=== PATIENT | male | born 1990 | race Caucasian/White ===

== ENCOUNTER 2023-11-14 12:38 | Inpatient (IN) ==
--- NOTE | 2023-11-14 13:18 | XRay Report ---
XR chest 1V not portable HISTORY: 33 years-old Male Chest pain, nonspecific acute chest pain COMPARISON: 04/12/2022 TECHNIQUE: AP view of the chest FINDINGS: Cardiomediastinal and hilar silhouettes are within normal limits. No pneumothorax, pleural effusion o r airspace consolidation. The bones appear grossly intact. IMPRESSION: No acute process of the chest. ACT 112: Negative or not required by law. The above report was generated using voice recognition software. It may contain grammatical, syntax o r spelling errors. Electronically signed by: [place] Ferrara M.D. 11/14/2023 1:16 PM
[2023-11-14] MEDS ORDERED: ALBUT/IPRATROP 3MG/0.5MG NEB 3 ML VIAL NEB STA (14:13)
[2023-11-14] MEDS ORDERED: cefTRIAXone SODIUM 2,000 MG/50 ML BAG IV STA (14:13)
[2023-11-14] MEDS ORDERED: AZITHROMYCIN 250 MG TAB PO ONE (14:13)
[2023-11-14] MEDS ORDERED: SODIUM CHLORIDE 0.9% 1,000 ML IV ONE (14:13)
[2023-11-14 14:18] LABS: Basophils # (auto) 0.01 K/uL (0.00-0.20); Basophils % (auto) 0.2 %; Eosinophils # (auto) 0.01 K/uL (0.00-0.50); Eosinophils % (auto) 0.2 %; Hematocrit (blood only) 41.1 % (42.0-52.0); Hemoglobin 14.5 g/dl (14.0-18.0); Lymphocytes % (auto) 28.3 %; Mean Corpuscular Hemoglobin 31.7 pg (25.0-34.0); Mean Corpuscular Hgb Conc 35.3 g/dL (32.0-36.0); Mean Corpuscular Volume 89.7 fL (80.0-100.0); Monocytes # (auto) 0.74 K/uL (0.11-0.59); Monocytes % (auto) 17.5 %; Neutrophils # (auto) 2.28 K/uL (1.40-6.50); Neutrophils % (auto) 53.8 %; Platelet Count 138 K/uL (130-400); RDW Coefficient of Variation 12.8 % (11.5-14.5); RDW Standard Deviation 42.2 fL (36.4-46.3); Red Blood Count 4.58 M/uL (4.70-6.10); White Blood Count 4.24 K/ul (4.8-10.8)
--- NOTE | 2023-11-14 14:18 | Emergency Department Note ---
Impression & Plan Weakness, SOB (shortness of breath), Hemoptysis, Influenza B, Failure of outpatient treatment ED Provider Note NAME: ROB CAN AGE: 33 SEX: M : 1990 ARRIVES VIA: Walk-In INFORMANT: [Patient] ED PROVIDER(S): [Wiley Headley MD] CHIEF COMPLAINT: Shortness of breath HISTORY OF PRESENT ILLNESS: The patient is a 33-year-old male with Crohn's disease. He is on immunosuppressive therapy. The patient states that he was at a trade show on November 04. On the , 4 days ago, he began feeling ill. He began with a cough and sore throat and chest congestion. He went to urgent care and was diagnosed with influenza B. The patient really was not improving so he went to his PCP yesterday. They diagnosed him with bronchitis. He was placed on an inhaler, Tessalon Perles and prednisone. The patient states that he still feels short of breath, he still coughing quite a bit. He began coughing to the point of vomiting and actually brought up some mucousy blood with his vomiting. The patient's throat is still sore. He denies any diarrhea or blood in his stool. He has lost weight because of this illness. The patient is concerned because he has not improved in the last week. PMHx/PSHx/Social Hx: See Below PHYSICAL EXAM: GENERAL: Patient is in no acute distress. HEENT: No acute trauma, normocephalic atraumatic, mucous membranes moist, no nasal congestion. No throat erythema or exudate. NECK: No stridor, no adenopathy, no meningismus, trachea is midline. LUNGS: Clear to auscultation bilaterally, no wheeze, no rhonchi, breath sounds equal. Breath sounds are diminished bilaterally, moist cough noted. HEART: Without murmurs gallops or rubs, regular rate and rhythm. ABDOMEN: Soft, nontender, no peritonitis. EXTREMITIES: No cyanosis, full range of motion of all the joints without pain or difficulty. NEUROLOGIC: Oriented x 3, no acute motor or sensory deficits, no focal weakness. SKIN: No jaundice, no diaphoresis. DIFFERENTIAL DIAGNOSIS: Influenza, COVID-19, bronchitis or pneumonia, PE, immunocompromise, coagulopathy or anemia, failed outpatient management, among others. EMERGENCY DEPARTMENT PROCEDURES: MEDICAL DECISION MAKING: There is no leukocytosis, in fact, the white count is slightly low consistent with his viral illness. There was a normal hemoglobin and platelet count. D- dimer was not elevated making PE less likely. No renal failure or significant electrolyte abnormality. There was a slight elevation to the bilirubin however, the remaining liver enzymes were unremarkable. No evidence for pancreatitis. ECG shows a normal sinus rhythm, no ST elevation. Cardiac enzyme testing x 1 is not consistent with acute cardiac injury. COVID test returned negative. Chest x-ray did not show pneumonia or CHF. Chest CT does not show pneumonia or PE. Patient persisted with coughing spells here in the ED. He felt weak and exhausted and short of breath. Patient received IV morphine for his chest and throat pain. He was given IV saline, 1 L. He received Hycodan cough syrup orally. He was given IV ceftriaxone and oral Zithromax as antibiotic coverage. He was given a DuoNeb. The patient is not feeling improved. He does not think he can go home in this condition. This is his third visit to a practitioner for this illness. He is somewhat immunocompromised because of his Crohn's disease and meds to treat. In short, the patient appears to have influenza B, this has led to a bronchitis and shortness of breath, fatigue and weakness. He will be hospitalized for hydration, symptom control and antibiotic therapy. I spoke with the patient and case management, the on-call hospitalist was consulted. Prior/Outside records/notes reviewed: Laboratory studies and results from his outpatient visits-notably positive for influenza B. ECG per my interpretation: Indication was shortness of breath. The ECG shows a normal sinus rhythm with a rate of 60. There is no ST elevation, no PVCs. QTc is 398. Continuous Cardiac Monitoring per my interpretation: An order was placed for continuous cardiac monitoring. The monitor shows a rate of 63 with normal sinus rhythm. Imaging/x-ray results per my interpretation: Chest x-ray does not show mediastinal widening, pneumonia or pneumothorax. Chronic Medical/Social conditions affecting care: Crohn's disease with immunosuppressive therapy. Care/Management discussed with: Case management, the on-call hospitalist. Level of care consideration(s): After review of the information above and other included data: --I believe the patient requires escalation of care to admission DISPOSITION: Admission Past Med/Surg History Medical History History of asthma DX A CHILD ONLY Gilbert syndrome Crohn's disease (~2016) [facility] Surgical History Family history of reaction to anesthesia MOTHER-NAUSEA History of colonoscopy S/P wrist surgery RT Family History Father Diabetes Grandfather (Maternal) Diabetes Grandfather (Paternal) Heart disease Denies family history of Colon cancer Ovarian cancer Prostate cancer Myocardial infarction Breast cancer Colorectal cancer Social History Smoking Status: Never smoker Second Hand Exposure: No; Do You Dip or Chew Tobacco: No; Hx Alcohol Use: No Hx Substance Use: No Preferred Language: Maltese Communication Ability: Effective Visual Impairment: No Limitations Hearing Ability: Normal Installer Metal Flooring Required: No Beliefs That Will Affect Care: None marital status: Single Current Living Situation: Parent Current Living Situation Comment: Lives with mother current occupational status: employed 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 How many Children do You have: 0 Feels Safe at Home: Yes Childhood Exposure to Second-Hand Smoke: No caffeine: Yes (coffee and soda ) Dental Care, Regularly: No Physical Activity Frequency: Does not Exercise Seatbelt Use: always Sunscreen Use: Yes Assistive Devices: None Allergies Allergies Allergy/AdvReac Type Severity Reaction Status Date / Time No Known Allergies Allergy Unknown Verified 11/14/23 14:27 Home Meds Home Medications Medication Instructions Recorded Confirmed acetaminophen 500 mg tablet 500 mg PO Q6H PRN pain/fever 11/14/23 11/14/23 albuterol sulfate 90 mcg/actuation 2 puff inhalation Q4H PRN 11/14/23 11/14/23 aerosol inhaler WHEEZING/sob benzonatate 100 mg capsule 100 mg PO TID PRN Cough 11/14/23 11/14/23 [id number]-acetaminophen 7.5 30 ml PO Q6H PRN Cold Symptoms 11/14/23 11/14/23 mg-60 [id number] oral liqd ibuprofen 400 mg tablet 400 mg PO Q6H PRN pain/fever 11/14/23 11/14/23 prednisone 10 mg tablet 0 mg PO DAILY 11/14/23 11/14/23 Results & Data (ED) Vital Signs Vital Signs - 24 hr 11/14/23 12:48 11/14/23 14:02 11/14/23 14:19 Temperature 37.2 C Temperature Source Temporal Artery Scan Pulse Rate 63 Pulse Rate from SpO2 Sensor Pulse Rhythm Regular Pulse Strength Normal Respiratory Rate 18 Respiratory Effort / Characteristics Non-Labored Respiratory Depth Normal Respiratory Pattern Regular Blood Pressure 146/76 H Blood Pressure Mean 99 Blood Pressure Position Sitting Pulse Oximetry 98 98 Oxygen Delivery Method Room Air Room Air Room Air Sepsis Recent Fever Within 48 Hours Yes Sepsis New/Unexplained Change in Mental Status No Sepsis Action Taken by Nursing No Action Required 11/14/23 14:28 11/14/23 14:30 11/14/23 14:30 Temperature Temperature Source Pulse Rate 69 64 Pulse Rate from SpO2 Sensor Pulse Rhythm Pulse Strength Respiratory Rate 24 17 Respiratory Effort / Characteristics Respiratory Depth Respiratory Pattern Blood Pressure 137/83 Blood Pressure Mean 93 Blood Pressure Position Pulse Oximetry Oxygen Delivery Method Sepsis Recent Fever Within 48 Hours Sepsis New/Unexplained Change in Mental Status Sepsis Action Taken by Nursing 11/14/23 14:40 11/14/23 15:22 11/14/23 15:30 Temperature Temperature Source Pulse Rate 69 81 Pulse Rate from SpO2 Sensor 106 H 84 Pulse Rhythm Pulse Strength Respiratory Rate 19 24 Respiratory Effort / Characteristics Respiratory Depth Respiratory Pattern Blood Pressure Blood Pressure Mean Blood Pressure Position Pulse Oximetry 97 99 Oxygen Delivery Method Sepsis Recent Fever Within 48 Hours Sepsis New/Unexplained Change in Mental Status Sepsis Action Taken by Nursing 11/14/23 15:30 11/14/23 15:40 11/14/23 15:50 Temperature Temperature Source Pulse Rate 103 H 84 Pulse Rate from SpO2 Sensor 97 H 86 Pulse Rhythm Pulse Strength Respiratory Rate 22 15 Respiratory Effort / Characteristics Respiratory Depth Respiratory Pattern Blood Pressure 163/75 H Blood Pressure Mean 107 Blood Pressure Position Pulse Oximetry 97 99 Oxygen Delivery Method Sepsis Recent Fever Within 48 Hours Sepsis New/Unexplained Change in Mental Status Sepsis Action Taken by Nursing 11/14/23 16:00 11/14/23 16:00 11/14/23 16:01 Temperature Temperature Source Pulse Rate 70 73 Pulse Rate from SpO2 Sensor 74 Pulse Rhythm Pulse Strength Respiratory Rate 23 Respiratory Effort / Characteristics Respiratory Depth Respiratory Pattern Blood Pressure 163/93 H Blood Pressure Mean 103 Blood Pressure Position Pulse Oximetry 97 Oxygen Delivery Method Sepsis Recent Fever Within 48 Hours Sepsis New/Unexplained Change in Mental Status Sepsis Action Taken by Nursing 11/14/23 16:10 11/14/23 16:20 11/14/23 16:30 Temperature Temperature Source Pulse Rate 89 81 Pulse Rate from SpO2 Sensor 76 83 Pulse Rhythm Pulse Strength Respiratory Rate 21 17 Respiratory Effort / Characteristics Respiratory Depth Respiratory Pattern Blood Pressure 153/100 H Blood Pressure Mean 117 Blood Pressure Position Pulse Oximetry 98 98 Oxygen Delivery Method Sepsis Recent Fever Within 48 Hours Sepsis New/Unexplained Change in Mental Status Sepsis Action Taken by Nursing 11/14/23 16:30 11/14/23 16:40 11/14/23 16:50 Temperature Temperature Source Pulse Rate 74 88 91 H Pulse Rate from SpO2 Sensor 75 87 81 Pulse Rhythm Pulse Strength Respiratory Rate 20 15 23 Respiratory Effort / Characteristics Respiratory Depth Respiratory Pattern Blood Pressure Blood Pressure Mean Blood Pressure Position Pulse Oximetry 97 97 95 Oxygen Delivery Method Sepsis Recent Fever Within 48 Hours Sepsis New/Unexplained Change in Mental Status Sepsis Action Taken by Nursing 11/14/23 17:00 11/14/23 17:00 11/14/23 17:30 Temperature Temperature Source Pulse Rate 79 98 H Pulse Rate from SpO2 Sensor 81 90 Pulse Rhythm Pulse Strength Respiratory Rate 24 21 Respiratory Effort / Characteristics Respiratory Depth Respiratory Pattern Blood Pressure 166/94 H 166/94 H 158/74 H Blood Pressure Mean 122 118 102 Blood Pressure Position Pulse Oximetry 98 98 Oxygen Delivery Method Sepsis Recent Fever Within 48 Hours Sepsis New/Unexplained Change in Mental Status Sepsis Action Taken by Nursing 11/14/23 18:00 11/14/23 18:30 11/14/23 19:00 Temperature Temperature Source Pulse Rate 81 87 79 Pulse Rate from SpO2 Sensor 74 90 82 Pulse Rhythm Pulse Strength Respiratory Rate 20 23 23 Respiratory Effort / Characteristics Respiratory Depth Respiratory Pattern Blood Pressure 157/70 H 152/83 H 163/91 H Blood Pressure Mean 99 106 115 Blood Pressure Position Pulse Oximetry 97 97 94 Oxygen Delivery Method Sepsis Recent Fever Within 48 Hours Sepsis New/Unexplained Change in Mental Status Sepsis Action Taken by Nursing 11/14/23 19:58 11/14/23 20:00 11/14/23 20:30 Temperature Temperature Source Pulse Rate 78 80 81 Pulse Rate from SpO2 Sensor 81 80 Pulse Rhythm Pulse Strength Respiratory Rate 21 22 Respiratory Effort / Characteristics Respiratory Depth Respiratory Pattern Blood Pressure 142/87 H 163/86 H Blood Pressure Mean 105 111 Blood Pressure Position Pulse Oximetry 96 94 Oxygen Delivery Method Sepsis Recent Fever Within 48 Hours Sepsis New/Unexplained Change in Mental Status Sepsis Action Taken by Group Home Medications Current Medication List: was personally reviewed by me Laboratory Data Attestation: I reviewed the patient's lab results. 11/14/23 13:40 11/14/23 13:40 Lab Results 11/14/23 Range/Units 13:40 WBC 4.24 L (4.8-10.8) K/ul RBC 4.58 L (4.70-6.10) M/uL Hgb 14.5 (14.0-18.0) g/dl Hct 41.1 L (42.0-52.0) % MCV 89.7 (80.0-100.0) fL MCH 31.7 (25.0-34.0) pg MCHC 35.3 (32.0-36.0) g/dL RDW Std Deviation 42.2 (36.4-46.3) fL RDW Coeff of Gege 12.8 (11.5-14.5) % Plt Count 138 (130-400) K/uL MPV 11.0 (9.4-12.4) fL Immature Gran % (Auto) 0.0 % Neut % (Auto) 53.8 % Lymph % (Auto) 28.3 % [place] % (Auto) 17.5 % Eos % (Auto) 0.2 % Baso % (Auto) 0.2 % Neut # (Auto) 2.28 (1.40-6.50) K/uL Lymph # (Auto) 1.20 (1.20-3.40) K/uL [place] # (Auto) 0.74 H (0.11-0.59) K/uL Eos # (Auto) 0.01 (0.00-0.50) K/uL Baso # (Auto) 0.01 (0.00-0.20) K/uL Immature Gran # (Auto) 0.00 L (0.01-0.20) K/uL D-Dimer 420 (0-500) ug/L FEU Sodium 140 (136-145) mmol/L Potassium 4.0 (3.5-5.1) mmol/L Chloride 103 (98-107) mmol/L Carbon Dioxide 32 (21-32) mmol/L Anion Gap 5 (3-11) BUN 9 (6-23) mg/dl Creatinine 0.81 (0.6-1.4) mg/dl Est Cr Clr Drug Dosing 167.3 ml/min Est GFR ( Amer) 137.3 ml/min Est GFR (Non-Af Amer) 118.4 ml/min BUN/Creatinine Ratio 11.1 (10-20) Glucose 89 (70-99(Fasting)) mg/dl Calcium 9.1 (8.6-10.3) mg/dl Total Bilirubin 1.8 H (0.2-1.0) mg/dl AST 20 (13-39) U/L ALT 29 (7-52) U/L Alkaline Phosphatase 47 (34-104) U/L Troponin I High Sens 2.6 (0-20) pg/ml Total Protein 7.4 (6.0-8.3) gm/dl Albumin 4.6 (3.4-5.0) gm/dl Globulin 2.8 (2.5-4.0) gm/dl Albumin/Globulin Ratio 1.6 (0.9-2) Lipase 37 (11-82) U/L SARS-CoV-2 (PCR) NEGATIVE (Negative) Administered Medications Discontinued Medications Albuterol (Albut/Ipratrop 3mg/0.5mg Neb 3 Ml Vial) 3 ml NEB NOW STA; Protocol Stop: 11/14/23 14:14 Last Admin: 11/14/23 14:31 Dose: 3 ml Documented By: HIRO Albuterol (Albut/Ipratrop 3mg/0.5mg Neb 3 Ml Vial) Confirm Administered Dose 3 ml .ROUTE .STK-MED ONE Stop: 11/14/23 18:46 Last Admin: 11/14/23 18:49 Dose: Not Given Documented By: ALDO Azithromycin (Azithromycin 250 Mg Tab) 500 mg PO NOW ONE Stop: 11/14/23 14:14 Last Admin: 11/14/23 14:31 Dose: 500 mg Documented By: HIRO Benzonatate (Benzonatate 100 Mg Capsule) Confirm Administered Dose 100 mg .ROUTE .STK-MED ONE Stop: 11/14/23 18:49 Last Admin: 11/14/23 18:49 Dose: 100 mg Documented By: ALDO Hydrocodone Bit/Homatropine Methylb (Hydrocodone/Homatropine Syrup 5mg/1.5mg 5ml Udp) 5 ml PO NOW STA Stop: 11/14/23 15:25 Last Admin: 11/14/23 15:41 Dose: 5 ml Documented By: HIRO Sodium Chloride (Nss) 1,000 mls @ 999 mls/hr IV .Q1H1M ONE Stop: 11/14/23 15:13 Last Infusion: 11/14/23 15:07 Dose: Infused Documented By: Admin: 11/14/23 14:31 Dose: 999 mls/hr Documented By: HIRO Ceftriaxone Sodium (Rocephin) 2,000 mg in 50 mls @ 100 mls/hr IV NOW STA Stop: 11/14/23 14:42 Last Infusion: 11/14/23 15:07 Dose: Infused Documented By: Admin: 11/14/23 14:31 Dose: 100 mls/hr Documented By: HIRO Ioversol (Optiray 320 125ml) 118 ml IV ONCE ONE Stop: 11/14/23 14:53 Last Admin: 11/14/23 14:53 Dose: 118 ml Documented By: CORA Methylprednisolone (Methylprednisolone 40 Mg/Ml Vial) 40 mg IV NOW STA Stop: 11/14/23 18:11 Last Admin: 11/14/23 18:44 Dose: 40 mg Documented By: HIRO Morphine Sulfate (Morphine Sulfate 4 Mg/Ml 1 Ml Carp\Vial) 4 mg IV NOW STA Stop: 11/14/23 16:42 Last Admin: 11/14/23 16:51 Dose: 4 mg Documented By: HIRO Imaging Data Radiologist's Impression: Chest X-Ray 11/14/23 12:51 XR chest 1V not portable HISTORY: 33 years-old Male Chest pain, nonspecific acute chest pain COMPARISON: 04/12/2022 TECHNIQUE: AP view of the chest FINDINGS: Cardiomediastinal and hilar silhouettes are within normal limits. No pneumothorax, pleural effusion or airspace consolidation. The bones appear grossly intact. IMPRESSION: No acute process of the chest. ACT 112: Negative or not required by law. The above report was generated using voice recognition software. It may contain grammatical, syntax or spelling errors. Electronically signed by: [place] Ferr[place] M.D. 11/14/2023 1:16 PM Chest CTA 11/14/23 14:13 CHEST CTA for PULMONARY ARTERIES CT DOSE: 823.68 mGy.cm HISTORY: Atypical chest pain. Cough. TECHNIQUE: Multiaxial CT images of the chest were performed following the intravenous administration of contrast to evaluate the pulmonary arteries. 3D/Maximal intensity projection images were also obtained. Sagittal and coronal reformations were also reviewed. A dose lowering technique was utilized adhering to the principles of ALARA. COMPARISON STUDY: Chest CTA 04/12/2022. FINDINGS: Hepatic steatosis is again noted. The visualized liver and spleen remain enlarged. Normal adrenal glands. The thyroid gland enhances normally. No pleural or pericardial effusions. The heart remains borderline enlarged. Normal esophagus. No mediastinal or hilar lymphadenopathy. Normal caliber thoracic aorta with no evidence for dissection. No filling defects seen within the pulmonary arteries to suggest a pulmonary embolus. No fractures within the visualized osseous structures. No pneumothorax. The central airways are patent. No focal lung consolidations to suggest pneumonia. No evidence for pulmonary edema. IMPRESSION: 1. No evidence for pulmonary embolus. 2. Borderline cardiomegaly, unchanged. 3. Hepatic steatosis with hepatosplenomegaly. This is also similar to the prior study. 4. No focal lung consolidations to suggest pneumonia. ACT 112: Negative or not required by law. Electronically signed by: Casey Nails M.D. 11/14/2023 3:29 PM Discharge Plan Visit Data Chief Complaint: Shortness of Breath/Dyspnea Stated Complaint: SOB,VOMITING BLOOD, CHEST PRESSURE ED Provider: Wiley Headley Discharge Problem: Weakness, SOB (shortness of breath), Hemoptysis, Influenza B, Failure of outpatient treatment Patient Disposition: Admitted As Inpatient Condition: Fair Forms Stand Alone Forms: [facility] Prescriptions Prescriptions: No Action prednisone 10 mg tablet 0 mg PO DAILY Rx Instructions: 50mg daily x2 days, 40mg daily x2 days, 30mg daily x2 days, 20mg daily x2 days, 10mg daily x2 days. Start Date 11/13/23 - End Date 11/23/23 NyQuil 7.5-60-30-1,000 mg/30 mL Liquid 30 ml PO Q6H PRN (Reason: Cold Symptoms) acetaminophen [Tylenol Ex Str Rapid Release] 500 mg Tablet 500 mg PO Q6H PRN (Reason: pain/fever) benzonatate 100 mg capsule 100 mg PO TID PRN (Reason: Cough) ibuprofen [Motrin] 400 mg Tablet 400 mg PO Q6H PRN (Reason: pain/fever) albuterol sulfate 90 mcg/actuation HFA aerosol inhaler 2 puff INHALATION Q4H PRN (Reason: WHEEZING/sob) Referrals Referrals: PCP,NO [Physician] -
[2023-11-14 14:20] LABS: Albumin Globulin Ratio 1.6 (0.9-2); Albumin Level 4.6 gm/dl (3.4-5.0); BUN Creatinine Ratio 11.1 (10-20); Bilirubin,Total 1.8 mg/dl (0.2-1.0); Calcium 9.1 mg/dl (8.6-10.3); Creatinine Clr Calc Pharmacy 167.3 ml/min; Est GFR (African American) 137.3 ml/min; Est GFR (Non-African American) 118.4 ml/min; Globulin 2.8 gm/dl (2.5-4.0); Total Protein 7.4 gm/dl (6.0-8.3)
[2023-11-14 14:26] LABS: Troponin I High Sensitivity 2.6 pg/ml (0-20)
[2023-11-14] MEDS ORDERED: OPTIRAY 320 125ml IV ONE (14:52)
[2023-11-14 15:03] LABS: D Dimer 420 ug/L FEU (0-500)
[2023-11-14] MEDS ORDERED: HYDROcodone/HOMATROPINE SYRUP 5MG/1.5MG 5ML UDP PO STA (15:24)
--- NOTE | 2023-11-14 15:31 | CT Scan Report ---
CHEST CTA for PULMONARY ARTERIES CT DOSE: 823.68 mGy.cm HISTORY: Atypical chest pain. Cough. TECHNIQUE: Multiaxial CT images of the chest were performed following the intravenous administration of contrast to evaluate the pulmonary arteries. 3D/Maximal intensity projection images were also obta ined. Sagittal and coronal reformations were also reviewed. A dose lowering technique was utilized a dhering to the principles of ALARA. COMPARISON STUDY: Chest CTA 04/12/2022. FINDINGS: Hepatic steatosis is again noted. The visualized liver and spleen remain enlarged. Normal a drenal glands. The thyroid gland enhances normally. No pleural or pericardial effusions. The heart re mary borderline enlarged. Normal esophagus. No mediastinal or hilar lymphadenopathy. Normal caliber thoracic aorta with no evidence for dissection. No filling defects seen within the pulmonary arteries to suggest a pulmonary embolus. No fractures within the visualized osseous structures. No pneumothor ax. The central airways are patent. No focal lung consolidations to suggest pneumonia. No evidence fo r pulmonary edema. IMPRESSION: 1. No evidence for pulmonary embolus. 2. Borderline cardiomegaly, unchanged. 3. Hepatic steatosis with hepatosplenomegaly. This is also similar to the prior study. 4. No focal lung consolidations to suggest pneumonia. ACT 112: Negative or not required by law. Electronically signed by: Casey Nails M.D. 11/14/2023 3:29 PM
[2023-11-14] MEDS ORDERED: MoRPHine SULFATE 4 MG/ML 1 ML CARP\\VIAL IV STA ×2 (16:41→22:28)
--- NOTE | 2023-11-14 18:03 | History & Physical Report ---
Date of Service November 14, 2023 Assessment & Plan (1) SOB (shortness of breath): Plan: 33-year-old male with past med significant for Gilbert disease, Crohn's disease, arthritis in Crohn's disease recently diagnosed with influenza B presents with shortness of breath. Patient states he is having symptoms since Friday. On November 10 was diagnosed with influenza B. Shortness of breath Influenza B Acute bronchitis Immunosuppressive state Coughing of bloody mucus CTA chest unremarkable Empirically started on Rocephin and Doxy which will be continued for now Follow procalcitonin levels Short course of steroids Tessalon Perles [id number] and Robitussin AC as needed Nebs [id number] clocking and as needed Gentle fluids Close monitor If worsening will consult pulmonary History of Crohn's disease On infliximab DVT prophylaxis Lovenox Disposition Med/tele Full code History of Present Illness Chief Complaint: Shortness of breath, influenza B Primary Care Provider: Travis Hoffman MD 33-year-old male with past med history significant for Gilbert disease, Crohn's disease, arthritis in Crohn's disease, recently diagnosed with influenza B presents with shortness of breath. Patient states he is having symptoms since Friday. On November 10 was diagnosed with influenza B. Saw PCP on November 13 was prescribed Tessalon Perles and prednisone. He also coughed up bloody mucus. Having a lot of cough ,bodyaches and some blood in the mucus so he came to the ER. Hemodynamically stable. Has headache. Vision is okay. Has a lot of sore throat and chest pain from coughing. Feeling short of breath. Earlier had nausea but okay now. Earlier diarrhea but that resolved now. Denies any blood in the stools. Initially had some abdominal pain but that resolved now. Micturating okay. No swelling in the legs. Past medical history. As mentioned above Past surgical history. Right wrist fracture orthosis Social history. No smoking. No alcohol use. No drug use. Family history. Father had CAD. Diabetes. Heart failure. Maternal grandfather had CAD. Maternal uncle has diabetes. Maternal uncle has pancreatic cancer. Allergies Allergy/AdvReac Type Severity Reaction Status Date / Time No Known Allergies Allergy Unknown Verified 11/14/23 14:27 Home Medications Medication Instructions Recorded Confirmed Type acetaminophen 500 mg tablet 500 mg PO Q6H PRN pain/fever 11/14/23 11/14/23 History albuterol sulfate 90 mcg/actuation 2 puff inhalation Q4H PRN 11/14/23 11/14/23 History aerosol inhaler WHEEZING/sob benzonatate 100 mg capsule 100 mg PO TID PRN Cough 11/14/23 11/14/23 History rosyyrdez-JEH-WM-acetaminophen 7.5 30 ml PO Q6H PRN Cold Symptoms 11/14/23 11/14/23 History mg-60 [id number] oral liqd ibuprofen 400 mg tablet 400 mg PO Q6H PRN pain/fever 11/14/23 11/14/23 History prednisone 10 mg tablet 0 mg PO DAILY 11/14/23 11/14/23 History Past Med/Surg History Medical History History of asthma DX A CHILD ONLY Gilbert syndrome Crohn's disease (~2015) [facility] History Family history of reaction to anesthesia MOTHER-NAUSEA History of colonoscopy S/P wrist surgery RT Family History Father Diabetes Grandfather (Maternal) Diabetes Grandfather (Paternal) Heart disease Denies family history of Colon cancer Ovarian cancer Prostate cancer Myocardial infarction Breast cancer Colorectal cancer Social History Smoking Status: Never smoker Second Hand Exposure: No; Do You Dip or Chew Tobacco: No; Hx Alcohol Use: No Hx Substance Use: No Preferred Language: Kinyarwanda Communication Ability: Effective Visual Impairment: No Limitations Hearing Ability: Normal Inspector [employer] [place] Required: No Beliefs That Will Affect Care: None marital status: Single Current Living Situation: Parent Current Living Situation Comment: Lives with mother current occupational status: employed 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 ENT- oropharynx clear Neck- supple, no JVD. Lungs- clear to auscultation b/l rhonchi heard. Heart- regular rhythm; no murmur, no gallop. Abdomen- normal bowel sounds, soft, nontender, no distension. Extremities- no pretibial edema, no erythema seen. Neuro- alert, oriented x 3; PERRL, no facial palsy; no dysarthria; moves extremities. Skin- warm & dry Results & Data Results & Data Vital Signs (Past 12 Hours) Vital Signs Temp Pulse Resp BP Pulse Ox O2 Del Method 11/14/23 16:50 91 H 23 95 11/14/23 16:40 88 15 97 11/14/23 16:30 74 20 97 11/14/23 16:30 153/100 H 11/14/23 16:20 81 17 98 11/14/23 16:10 89 21 98 11/14/23 16:01 73 11/14/23 16:00 70 23 97 11/14/23 16:00 163/93 H 11/14/23 15:50 84 15 99 11/14/23 15:40 103 H 22 97 11/14/23 15:30 163/75 H 11/14/23 15:30 81 24 99 11/14/23 15:22 97 11/14/23 14:40 69 19 11/14/23 14:30 64 17 11/14/23 14:30 137/83 11/14/23 14:28 69 24 11/14/23 14:19 98 Room Air 11/14/23 14:02 Room Air 11/14/23 12:48 37.2 C 63 18 146/76 H 98 Room Air Diagnostic Findings Laboratory Results WBC 4.24 K/ul (4.8-10.8) L 11/14/23 13:40 RBC 4.58 M/uL (4.70-6.10) L 11/14/23 13:40 Hgb 14.5 g/dl (14.0-18.0) 11/14/23 13:40 Hct 41.1 % (42.0-52.0) L 11/14/23 13:40 MCV 89.7 fL (80.0-100.0) 11/14/23 13:40 MCH 31.7 pg (25.0-34.0) 11/14/23 13:40 MCHC 35.3 g/dL (32.0-36.0) 11/14/23 13:40 RDW Std Deviation 42.2 fL (36.4-46.3) 11/14/23 13:40 RDW Coeff of Gege 12.8 % (11.5-14.5) 11/14/23 13:40 Plt Count 138 K/uL (130-400) 11/14/23 13:40 MPV 11.0 fL (9.4-12.4) 11/14/23 13:40 Immature Gran % (Auto) 0.0 % 11/14/23 13:40 Neut % (Auto) 53.8 % 11/14/23 13:40 Lymph % (Auto) 28.3 % 11/14/23 13:40 [place] % (Auto) 17.5 % 11/14/23 13:40 Eos % (Auto) 0.2 % 11/14/23 13:40 Baso % (Auto) 0.2 % 11/14/23 13:40 Neut # (Auto) 2.28 K/uL (1.40-6.50) 11/14/23 13:40 Lymph # (Auto) 1.20 K/uL (1.20-3.40) 11/14/23 13:40 [place] # (Auto) 0.74 K/uL (0.11-0.59) H 11/14/23 13:40 Eos # (Auto) 0.01 K/uL (0.00-0.50) 11/14/23 13:40 Baso # (Auto) 0.01 K/uL (0.00-0.20) 11/14/23 13:40 Immature Gran # (Auto) 0.00 K/uL (0.01-0.20) L 11/14/23 13:40 D-Dimer 420 ug/L FEU (0-500) 11/14/23 13:40 Sodium 140 mmol/L (136-145) 11/14/23 13:40 Potassium 4.0 mmol/L (3.5-5.1) 11/14/23 13:40 Chloride 103 mmol/L (98-107) 11/14/23 13:40 Carbon Dioxide 32 mmol/L (21-32) 11/14/23 13:40 Anion Gap 5 (3-11) 11/14/23 13:40 BUN 9 mg/dl (6-23) 11/14/23 13:40 Creatinine 0.81 mg/dl (0.6-1.4) 11/14/23 13:40 Est Cr Clr Drug Dosing 167.3 ml/min 11/14/23 13:40 Est GFR ( Amer) 137.3 ml/min 11/14/23 13:40 Est GFR (Non-Af Amer) 118.4 ml/min 11/14/23 13:40 BUN/Creatinine Ratio 11.1 (10-20) 11/14/23 13:40 Glucose 89 mg/dl (70-99(Fasting)) 11/14/23 13:40 Calcium 9.1 mg/dl (8.6-10.3) 11/14/23 13:40 Total Bilirubin 1.8 mg/dl (0.2-1.0) H 11/14/23 13:40 AST 20 U/L (13-39) 11/14/23 13:40 ALT 29 U/L (7-52) 11/14/23 13:40 Alkaline Phosphatase 47 U/L (34-104) 11/14/23 13:40 Troponin I High Sens 2.6 pg/ml (0-20) 11/14/23 13:40 Total Protein 7.4 gm/dl (6.0-8.3) 11/14/23 13:40 Albumin 4.6 gm/dl (3.4-5.0) 11/14/23 13:40 Globulin 2.8 gm/dl (2.5-4.0) 11/14/23 13:40 Albumin/Globulin Ratio 1.6 (0.9-2) 11/14/23 13:40 Lipase 37 U/L (11-82) 11/14/23 13:40 SARS-CoV-2 (PCR) NEGATIVE (Negative) 11/14/23 13:40 Impressions Chest X-Ray 11/14/23 12:51 XR chest 1V not portable HISTORY: 33 years-old Male Chest pain, nonspecific acute chest pain COMPARISON: 04/12/2022 TECHNIQUE: AP view of the chest FINDINGS: Cardiomediastinal and hilar silhouettes are within normal limits. No pneumothorax, pleural effusion or airspace consolidation. The bones appear grossly intact. IMPRESSION: No acute process of the chest. ACT 112: Negative or not required by law. The above report was generated using voice recognition software. It may contain grammatical, syntax or spelling errors. Electronically signed by: [place] M.D. 11/14/2023 1:16 PM Chest CTA 11/14/23 14:13 CHEST CTA for PULMONARY ARTERIES CT DOSE: 823.68 mGy.cm HISTORY: Atypical chest pain. Cough. TECHNIQUE: Multiaxial CT images of the chest were performed following the intravenous administration of contrast to evaluate the pulmonary arteries. 3D/Maximal intensity projection images were also obtained. Sagittal and coronal reformations were also reviewed. A dose lowering technique was utilized adhering to the principles of ALARA. COMPARISON STUDY: Chest CTA 04/12/2022. FINDINGS: Hepatic steatosis is again noted. The visualized liver and spleen remain enlarged. Normal adrenal glands. The thyroid gland enhances normally. No pleural or pericardial effusions. The heart remains borderline enlarged. Normal esophagus. No mediastinal or hilar lymphadenopathy. Normal caliber thoracic aorta with no evidence for dissection. No filling defects seen within the pulmonary arteries to suggest a pulmonary embolus. No fractures within the visualized osseous structures. No pneumothorax. The central airways are patent. No focal lung consolidations to suggest pneumonia. No evidence for pulmonary edema. IMPRESSION: 1. No evidence for pulmonary embolus. 2. Borderline cardiomegaly, unchanged. 3. Hepatic steatosis with hepatosplenomegaly. This is also similar to the prior study. 4. No focal lung consolidations to suggest pneumonia. ACT 112: Negative or not required by law. Electronically signed by: Casey Nails M.D. 11/14/2023 3:29 PM ECG Additional Comments: ECG. Normal sinus rhythm rate of 60. No significant change was found Code Status & VTE Plan VTE Prophylaxis Plan VTE Prophylaxis will be ordered: Yes
[2023-11-14] MEDS ORDERED: ALBUT/IPRATROP 3MG/0.5MG NEB 3 ML VIAL ONE (18:45)
[2023-11-14] MEDS ORDERED: BENZONATATE 100 MG CAPSULE ONE (18:48)
[2023-11-14] MEDS ORDERED: ALBUTEROL HFA 8 GM INHALER INH PRN (21:16)
[2023-11-14] MEDS ORDERED: guaiFENesin/CODEINE 100MG/10MG 5ML UDC PO PRN (21:16)
[2023-11-14] MEDS ORDERED: ACETAMINOPHEN 325 MG TAB PO PRN (21:16)
[2023-11-14] MEDS ORDERED: ALBUT/IPRATROP 3MG/0.5MG NEB 3 ML VIAL NEB PRN (21:16)
[2023-11-14] MEDS ORDERED: D5W AND 1/2NSS 1,000 ML IV SCH (21:16)
[2023-11-14] MEDS ORDERED: NITROGLYCERIN SL 0.4 MG/TAB TAB SL PRN (21:16)
[2023-11-14] MEDS ORDERED: ACETAMINOPHEN 325 MG TAB ONE (21:20)
[2023-11-14] MEDS: ENOXAPARIN INJ 40 MG/0.4 ML SYR SQ SCH (21:58)
[2023-11-14] MEDS: ALBUT/IPRATROP 3MG/0.5MG NEB 3 ML VIAL NEB SCH (22:01)
[2023-11-14] MEDS: BENZONATATE 100 MG CAPSULE PO SCH (22:10)
[2023-11-15] MEDS ORDERED: MoRPHine SULFATE 4 MG/ML 1 ML CARP\\VIAL ONE (02:20)
[2023-11-15 04:45] LABS: Hematocrit (blood only) 38.4 % (42.0-52.0); Hemoglobin 13.7 g/dl (14.0-18.0); Immature Granulocytes # (auto) 0.02 K/uL (0.01-0.20); Immature Granulocytes % (auto) 0.5 %; Lymphocytes # (auto) 0.54 K/uL (1.20-3.40); Lymphocytes % (auto) 13.2 %; Mean Corpuscular Hemoglobin 31.6 pg (25.0-34.0); Mean Corpuscular Hgb Conc 35.7 g/dL (32.0-36.0); Mean Corpuscular Volume 88.5 fL (80.0-100.0); Mean Platelet Volume 10.6 fL (9.4-12.4); Monocytes # (auto) 0.47 K/uL (0.11-0.59); Monocytes % (auto) 11.5 %; Neutrophils # (auto) 3.05 K/uL (1.40-6.50); Neutrophils % (auto) 74.8 %; Platelet Count 140 K/uL (130-400); RDW Coefficient of Variation 12.7 % (11.5-14.5); RDW Standard Deviation 41.4 fL (36.4-46.3); Red Blood Count 4.34 M/uL (4.70-6.10); White Blood Count 4.08 K/ul (4.8-10.8)
[2023-11-15 04:49] LABS: Calcium 8.8 mg/dl (8.6-10.3); Creatinine Clr Calc Pharmacy 150.5 ml/min; Est GFR (African American) 131.4 ml/min; Est GFR (Non-African American) 113.4 ml/min; Potassium 4.8 mmol/L (3.5-5.1)
[2023-11-15] MEDS: ALBUT/IPRATROP 3MG/0.5MG NEB 3 ML VIAL NEB SCH ×4 (06:51→19:12)
[2023-11-15] MEDS ORDERED: guaiFENesin 600 MG TABCR PO ONE (07:46)
--- NOTE | 2023-11-15 07:54 | Electrocardiogram Report ---
Test Reason : Blood Pressure : / mmHG Vent. Rate : 060 BPM Atrial Rate : 060 BPM P-R Int : 140 ms QRS Dur : 094 ms QT Int : 398 ms P-R-T Axes : 055 061 025 degrees QTc Int : 398 ms Normal sinus rhythm Normal ECG When compared with ECG of 12-APR-2022 17:01, No significant change was found Confirmed by Trae Humphries ([id number]) on 11/15/2023 7:53:56 AM Referred By: Karlene Hernandez Confirmed By:Trae Humphries
[2023-11-15] MEDS: predniSONE 20 MG TAB PO SCH (08:00)
[2023-11-15] MEDS: BENZONATATE 100 MG CAPSULE PO SCH ×3 (08:00→19:46)
[2023-11-15] MEDS: guaiFENesin 600 MG TABCR PO SCH ×2 (08:00→19:46)
[2023-11-15] MEDS: DOXYCYCLINE HYCLATE 100 MG in DEXTROSE 5% MINI-B 100 ML IV SCH ×2 (08:01→19:47)
[2023-11-15] MEDS ORDERED: COUGH DROP (SUGAR FREE) LOZ 24 LOZ/1 BOX BUCCAL ONE (13:56)
[2023-11-15] MEDS ORDERED: CHLORASEPTIC (PHENOL) 1.4% SOLN 180 ML BTL MT PRN (13:56)
[2023-11-15] MEDS ORDERED: FIRST - Mouthwash BLM 119 ML PO PRN (14:44)
--- NOTE | 2023-11-15 14:44 | Hospitalist Progress Note ---
Date of Service November 15, 2023 Assessment & Plan (1) SOB (shortness of breath): Plan: 33-year-old male with past med significant for Gilbert disease, Crohn's disease, arthritis in Crohn's disease recently diagnosed with influenza B presents with shortness of breath. Patient states he is having symptoms since Friday. On November 10 was diagnosed with influenza B. Acute bronchitis secondary to influenza B On infliximab therapy for Crohn's disease CTA chest: No pneumonia, no PE Check sputum culture Continue nebs, prednisone, ceftriaxone plus doxycycline Continue Mucinex, Tessalon Perles Continue incentive spirometry and flutter valve Monitor closely History of Crohn's disease On infliximab every 2 months DVT prophylaxis Lovenox Disposition Anticipate discharge to home medically stable Full code Admission and Anticipated Discharge Date Admission Date: November 14, 2023 Subjective Follow-up for influenza infection, acute bronchitis, etc. Seen resting in bed, comfortable, not in distress States he is somewhat improved compared to yesterday Still having some cough, sore throat, but no shortness of breath Producing yellowish-brownish sputum No fevers or chills No other new symptoms Review of Systems Review of Systems: all noted and negative except for above Physical Exam Physical Exam: General- oriented x 3, not in distress, speaks in sentences with no effort or accessory muscle use Eyes- anicteric mild stephany pharyngeal erythema No tonsillar exudates Neck- no JVD Lungs-occasional rhonchi upper lung [place] No wheezing, good air entry bilateral Heart- normal rate, regular rhythm; no murmurs Abdomen- normal bowel sounds, nondistended, soft, nontender Extremities- no pretibial edema, no calf tenderness Neuro- alert, oriented x 3; no gross focal neurologic deficits Skin- warm & dry Results & Data Results & Data Vital Signs (Past 12 Hours) Vital Signs Temp Pulse Pulse Pulse Resp BP BP 11/15/23 14:33 90 19 11/15/23 13:55 11/15/23 13:52 37 C 64 18 137/78 11/15/23 11:23 94 H 15 154/76 H 11/15/23 10:41 71 16 11/15/23 08:14 11/15/23 08:00 66 18 142/70 H 11/15/23 07:22 67 11/15/23 06:52 18 11/15/23 04:51 59 L 17 111/64 Pulse Ox O2 Del Method 11/15/23 14:33 98 Room Air 11/15/23 13:55 Room Air 11/15/23 13:52 98 Room Air 11/15/23 11:23 97 Room Air 11/15/23 10:41 97 Room Air 11/15/23 08:14 Room Air 11/15/23 08:00 97 Room Air 11/15/23 07:22 11/15/23 06:52 96 Room Air 11/15/23 04:51 97 Room Air all noted and reviewed including below
[2023-11-15] MEDS ORDERED: cefTRIAXone SODIUM 2,000 MG in DEXTROSE 5 % MINI-B 50 ML IV SCH (17:00)
[2023-11-15] MEDS: ENOXAPARIN INJ 40 MG/0.4 ML SYR SQ SCH (19:46)
[2023-11-16] MEDS: ALBUT/IPRATROP 3MG/0.5MG NEB 3 ML VIAL NEB SCH ×4 (07:23→19:41)
[2023-11-16] MEDS: BENZONATATE 100 MG CAPSULE PO SCH ×3 (07:53→20:14)
[2023-11-16] MEDS: predniSONE 20 MG TAB PO SCH (07:53)
[2023-11-16] MEDS: guaiFENesin 600 MG TABCR PO SCH ×2 (07:53→20:14)
[2023-11-16] MEDS: DOXYCYCLINE HYCLATE 100 MG in DEXTROSE 5% MINI-B 100 ML IV SCH (09:19)
[2023-11-16] MEDS: OSELTAMIVIR PHOSPHATE 75 MG CAP PO SCH ×2 (15:35→20:14)
--- NOTE | 2023-11-16 16:23 | Hospitalist Progress Note ---
Date of Service November 16, 2023 Assessment & Plan (1) SOB (shortness of breath): Plan: 33-year-old male with past med significant for Gilbert disease, Crohn's disease, arthritis in Crohn's disease recently diagnosed with influenza B presents with shortness of breath. Patient states he is having symptoms since Friday. On November 10 was diagnosed with influenza B. Acute bronchitis secondary to influenza B On infliximab therapy for Crohn's disease CTA chest: No pneumonia, no PE Check sputum culture: Pending collection Slowly improving Continue nebs, add hypertonic saline Continue prednisone Add Tamiflu Continue doxycycline Continue Mucinex, Tessalon Perles Continue incentive spirometry and flutter valve Monitor closely History of Crohn's disease On infliximab every 2 months DVT prophylaxis Lovenox Disposition Anticipate discharge to home medically stable Full code Admission and Anticipated Discharge Date Admission Date: November 14, 2023 Subjective ff up for influenza B, acute bronchitis, etc. Seen resting in bed, sitting up, comfortable, not in distress CT feels somewhat improved compared to yesterday Still having cough productive of yellow sputum Able to expectorate more Breathing is improving No other new symptoms Review of Systems Review of Systems: all noted and negative except for above Physical Exam Physical Exam: General- oriented x 3, not in distress, speaks in sentences with no effort or accessory muscle use Eyes- anicteric Neck- no JVD Lungs- mild rhonchi BL Heart- normal rate, regular rhythm; no murmurs Abdomen- normal bowel sounds, nondistended, soft, nontender Extremities- no pretibial edema, no calf tenderness Neuro- alert, oriented x 3; no gross focal neurologic deficits Skin- warm & dry Results & Data Results & Data Vital Signs (Past 12 Hours) Vital Signs Temp Pulse Resp BP Pulse Ox O2 Del Method 11/16/23 15:36 36.3 C L 76 16 146/74 H 97 Room Air 11/16/23 14:32 75 20 96 Room Air 11/16/23 10:48 72 16 97 Room Air 11/16/23 07:56 Room Air 11/16/23 07:23 70 20 98 Room Air 11/16/23 06:13 36.7 C 66 16 124/75 97 Room Air all noted and reviewed including below
[2023-11-16] MEDS: SODIUM CHLOR 7% 4 ML NEB NEB SCH (19:41)
[2023-11-16] MEDS: ENOXAPARIN INJ 40 MG/0.4 ML SYR SQ SCH (20:14)
[2023-11-16] MEDS: DOXYCYCLINE HYCLATE 100 MG CAP PO SCH (20:14)
[2023-11-16] MEDS ORDERED: ONDANSETRON INJ 2 MG/ML 2 ML VIAL IV PRN (21:17)
[2023-11-17] MEDS: ALBUT/IPRATROP 3MG/0.5MG NEB 3 ML VIAL NEB SCH ×3 (07:19→14:59)
[2023-11-17] MEDS: SODIUM CHLOR 7% 4 ML NEB NEB SCH (07:19)
[2023-11-17] MEDS: guaiFENesin 600 MG TABCR PO SCH (07:56)
[2023-11-17] MEDS: OSELTAMIVIR PHOSPHATE 75 MG CAP PO SCH (07:56)
[2023-11-17] MEDS: predniSONE 20 MG TAB PO SCH (07:57)
[2023-11-17] MEDS: DOXYCYCLINE HYCLATE 100 MG CAP PO SCH (07:57)
[2023-11-17] MEDS: BENZONATATE 100 MG CAPSULE PO SCH ×2 (08:00→14:08)
--- NOTE | 2023-11-17 15:21 | Hospitalist Progress Note ---
Date of Service November 17, 2023 Assessment & Plan (1) SOB (shortness of breath): Plan: 33-year-old male with past med significant for Gilbert disease, Crohn's disease, arthritis in Crohn's disease recently diagnosed with influenza B presents with shortness of breath. Patient states he is having symptoms since Friday. On November 10 was diagnosed with influenza B. Acute bronchitis secondary to influenza B On infliximab therapy for Crohn's disease CTA chest: No pneumonia, no PE Patient placed on Tamiflu, doxycycline, prednisone 40 mg daily, DuoNeb 6 hours, hypertonic saline Also given incentive spirometry, flutter valve Clinically improved On room air Discharge medications: Tamiflu to complete 5-day course Doxycycline for 5 more days to complete 7-day course DuoNeb 3 times daily x 3 to 5 days and as needed Prednisone 40 mg daily x 2 more days to complete 5-day course total next Mucinex x 3 days Continue flutter valve incentive spirometry at home Follow-up with PCP in 1 week History of Crohn's disease On infliximab every 2 months DVT prophylaxis Lovenox given plan of care discussed with patient in detail and at length all questions answered he is understanding, agreeable, comfortable with the plan of care Admission and Anticipated Discharge Date Admission Date: November 14, 2023 Subjective Follow-up for acute bronchitis, influenza infection, etc. Seen resting in bed, comfortable, not in distress Sitting up, in good spirits States he feels improved overall Breathing is much better, less cough, able to expectorate more phlegm Less sore throat, no fevers or chills No other new symptoms States he is ready for discharge today Review of Systems Review of Systems: all noted and negative except for above Physical Exam Physical Exam: General- oriented x 3, not in distress, speaks in sentences with no effort or accessory muscle use Eyes- anicteric Neck- no JVD Lungs- clear breath sounds bilaterally, no rales/wheezes Heart- normal rate, regular rhythm; no murmurs Abdomen- normal bowel sounds, nondistended, soft, nontender Extremities- no pretibial edema, no calf tenderness Neuro- alert, oriented x 3; no gross focal neurologic deficits Skin- warm & dry Results & Data Results & Data Vital Signs (Past 12 Hours) Vital Signs Temp Pulse Resp BP Pulse Ox O2 Del Method 11/17/23 14:59 16 97 Room Air 11/17/23 11:33 67 18 98 Room Air 11/17/23 08:17 Room Air 11/17/23 07:24 36.7 C 60 16 148/73 H 100 Room Air 11/17/23 07:19 76 17 95 Room Air all noted and reviewed including below
--- NOTE | 2023-11-17 15:48 | Discharge Summary ---
Discharge Summary Date of Service November 17, 2023 Notes For Next Care Provider Medication Changes From Visit Doxycycline for 5 more days to complete 7-day course DuoNeb 3 times daily x 3 to 5 days and as needed Prednisone 40 mg daily x 2 more days to complete 5-day course total next Mucinex x 3 days Admission HPI Per Admitting Provider 33-year-old male with past med history significant for Gilbert disease, Crohn's disease, arthritis in Crohn's disease, recently diagnosed with influenza B presents with shortness of breath. Patient states he is having symptoms since Friday. On November 10 was diagnosed with influenza B. Saw PCP on November 13 was prescribed Tessalon Perles and prednisone. He also coughed up bloody mucus. Having a lot of cough ,bodyaches and some blood in the mucus so he came to the ER. Hemodynamically stable. Has headache. Vision is okay. Has a lot of sore throat and chest pain from coughing. Feeling short of breath. Earlier had nausea but okay now. Earlier diarrhea but that resolved now. Denies any blood in the stools. Initially had some abdominal pain but that resolved now. Micturating okay. No swelling in the legs. Past medical history. As mentioned above Past surgical history. Right wrist fracture orthosis Social history. No smoking. No alcohol use. No drug use. Family history. Father had CAD. Diabetes. Heart failure. Maternal grandfather had CAD. Maternal uncle has diabetes. Maternal uncle has pancreatic cancer. Admission Exam Per Admitting Provider General- Not in distress Head- atraumatic Eyes- PERRL. ENT- oropharynx clear Neck- supple, no JVD. Lungs- clear to auscultation b/l rhonchi heard. Heart- regular rhythm; no murmur, no gallop. Abdomen- normal bowel sounds, soft, nontender, no distension. Extremities- no pretibial edema, no erythema seen. Neuro- alert, oriented x 3; PERRL, no facial palsy; no dysarthria; moves extremities. Skin- warm & dry Principal Dx & Hospital Course #1 = Principal Diagnosis (1) SOB (shortness of breath): 33-year-old male with past med significant for Gilbert disease, Crohn's disease, arthritis in Crohn's disease recently diagnosed with influenza B presents with shortness of breath. Patient states he is having symptoms since Friday. On November 10 was diagnosed with influenza B. ACUTE BRONCHITIS SECONDARY TO INFLUENZA B On infliximab therapy for Crohn's disease CTA chest: No pneumonia, no PE Patient placed on Tamiflu, doxycycline, prednisone 40 mg daily, DuoNeb 6 hours, hypertonic saline Also given incentive spirometry, flutter valve Clinically improved On room air Discharge medications: Tamiflu to complete 5-day course Doxycycline for 5 more days to complete 7-day course DuoNeb 3 times daily x 3 to 5 days and as needed Prednisone 40 mg daily x 2 more days to complete 5-day course total next Mucinex x 3 days Continue flutter valve incentive spirometry at home Follow-up with PCP in 1 week HEPATIC STEATOSIS WITH HEPATOSPLENOMEGALY Seen on CT chest Further work up, management, and ff up as outpatient HISTORY OF CROHN'S DISEASE On infliximab every 2 months DVT prophylaxis Lovenox given plan of care discussed with patient in detail and at length all questions answered he is understanding, agreeable, comfortable with the plan of care Discharge Exam General- oriented x 3, not in distress, speaks in sentences with no effort or accessory muscle use Eyes- anicteric Neck- no JVD Lungs- clear breath sounds bilaterally, no rales/wheezes Heart- normal rate, regular rhythm; no murmurs Abdomen- normal bowel sounds, nondistended, soft, nontender Extremities- no pretibial edema, no calf tenderness Neuro- alert, oriented x 3; no gross focal neurologic deficits Skin- warm & dry Updated Medication List Medication Instructions Recorded Confirmed Type acetaminophen 500 mg tablet 500 mg PO Q6H PRN pain/fever 11/14/23 11/14/23 History benzonatate 100 mg capsule 100 mg PO TID PRN Cough 11/14/23 11/14/23 History ibuprofen 400 mg tablet 400 mg PO Q6H PRN pain/fever 11/14/23 11/14/23 History doxycycline hyclate 100 mg capsule 100 mg PO BID 5 days #10 caps 11/17/23 Rx guaifenesin 600 mg tablet, 600 mg PO Q12 3 days #6 tabs 11/17/23 Rx extended release 12 hr (Mucinex) ipratropium 0.5 mg-albuterol 3 mg 3 ml NEB TID 5 days #90 mL 11/17/23 Rx (2.5 mg base)/3 mL nebulization soln oseltamivir 75 mg capsule (Tamiflu) 75 mg PO BID #7 caps 11/17/23 Rx prednisone 20 mg tablet 40 mg (2 x 20 mg) PO DAILY 2 days 11/17/23 Rx #4 tabs Hospital Stay Data Consultations 11/14/23 17:20 ED Decision to Admit Stat Diagnostic Imagining Performed Laboratory Results WBC 4.08 K/ul (4.8-10.8) L 11/15/23 04:00 RBC 4.34 M/uL (4.70-6.10) L 11/15/23 04:00 Hgb 13.7 g/dl (14.0-18.0) L 11/15/23 04:00 Hct 38.4 % (42.0-52.0) L 11/15/23 04:00 MCV 88.5 fL (80.0-100.0) 11/15/23 04:00 MCH 31.6 pg (25.0-34.0) 11/15/23 04:00 MCHC 35.7 g/dL (32.0-36.0) 11/15/23 04:00 RDW Std Deviation 41.4 fL (36.4-46.3) 11/15/23 04:00 RDW Coeff of Gege 12.7 % (11.5-14.5) 11/15/23 04:00 Plt Count 140 K/uL (130-400) 11/15/23 04:00 MPV 10.6 fL (9.4-12.4) 11/15/23 04:00 Immature Gran % (Auto) 0.5 % 11/15/23 04:00 Neut % (Auto) 74.8 % 11/15/23 04:00 Lymph % (Auto) 13.2 % 11/15/23 04:00 [place] % (Auto) 11.5 % 11/15/23 04:00 Eos % (Auto) 0.0 % 11/15/23 04:00 Baso % (Auto) 0.0 % 11/15/23 04:00 Neut # (Auto) 3.05 K/uL (1.40-6.50) 11/15/23 04:00 Lymph # (Auto) 0.54 K/uL (1.20-3.40) L 11/15/23 04:00 [place] # (Auto) 0.47 K/uL (0.11-0.59) 11/15/23 04:00 Eos # (Auto) 0.00 K/uL (0.00-0.50) 11/15/23 04:00 Baso # (Auto) 0.00 K/uL (0.00-0.20) 11/15/23 04:00 Immature Gran # (Auto) 0.02 K/uL (0.01-0.20) 11/15/23 04:00 D-Dimer 420 ug/L FEU (0-500) 11/14/23 13:40 Sodium 136 mmol/L (136-145) 11/15/23 04:00 Potassium 4.8 mmol/L (3.5-5.1) 11/15/23 04:00 Chloride 99 mmol/L (98-107) 11/15/23 04:00 Carbon Dioxide 31 mmol/L (21-32) 11/15/23 04:00 Anion Gap 6 (3-11) 11/15/23 04:00 BUN 9 mg/dl (6-23) 11/15/23 04:00 Creatinine 0.90 mg/dl (0.6-1.4) 11/15/23 04:00 Est Cr Clr Drug Dosing 150.5 ml/min 11/15/23 04:00 Est GFR ( Amer) 131.4 ml/min 11/15/23 04:00 Est GFR (Non-Af Amer) 113.4 ml/min 11/15/23 04:00 BUN/Creatinine Ratio 10.0 (10-20) 11/15/23 04:00 Glucose 147 mg/dl (70-99(Fasting)) H 11/15/23 04:00 Calcium 8.8 mg/dl (8.6-10.3) 11/15/23 04:00 Magnesium 2.0 mg/dl (1.7-2.4) 11/15/23 04:00 Total Bilirubin 1.8 mg/dl (0.2-1.0) H 11/14/23 13:40 AST 20 U/L (13-39) 11/14/23 13:40 ALT 29 U/L (7-52) 11/14/23 13:40 Alkaline Phosphatase 47 U/L (34-104) 11/14/23 13:40 Troponin I High Sens 2.6 pg/ml (0-20) 11/14/23 13:40 Total Protein 7.4 gm/dl (6.0-8.3) 11/14/23 13:40 Albumin 4.6 gm/dl (3.4-5.0) 11/14/23 13:40 Globulin 2.8 gm/dl (2.5-4.0) 11/14/23 13:40 Albumin/Globulin Ratio 1.6 (0.9-2) 11/14/23 13:40 Lipase 37 U/L (11-82) 11/14/23 13:40 Procalcitonin < 0.05 ng/ml (0-0.5) 11/15/23 04:00 SARS-CoV-2 (PCR) NEGATIVE (Negative) 11/14/23 13:40 Impressions Chest X-Ray 11/14/23 12:51 XR chest 1V not portable HISTORY: 33 years-old Male Chest pain, nonspecific acute chest pain COMPARISON: 04/12/2022 TECHNIQUE: AP view of the chest FINDINGS: Cardiomediastinal and hilar silhouettes are within normal limits. No pneumothorax, pleural effusion or airspace consolidation. The bones appear grossly intact. IMPRESSION: No acute process of the chest. ACT 112: Negative or not required by law. The above report was generated using voice recognition software. It may contain grammatical, syntax or spelling errors. Electronically signed by: [place] M.D. 11/14/2023 1:16 PM Chest CTA 11/14/23 14:13 CHEST CTA for PULMONARY ARTERIES CT DOSE: 823.68 mGy.cm HISTORY: Atypical chest pain. Cough. TECHNIQUE: Multiaxial CT images of the chest were performed following the intravenous administration of contrast to evaluate the pulmonary arteries. 3D/Maximal intensity projection images were also obtained. Sagittal and coronal reformations were also reviewed. A dose lowering technique was utilized adhering to the principles of ALARA. COMPARISON STUDY: Chest CTA 04/12/2022. FINDINGS: Hepatic steatosis is again noted. The visualized liver and spleen remain enlarged. Normal adrenal glands. The thyroid gland enhances normally. No pleural or pericardial effusions. The heart remains borderline enlarged. Normal esophagus. No mediastinal or hilar lymphadenopathy. Normal caliber thoracic aorta with no evidence for dissection. No filling defects seen within the pulmonary arteries to suggest a pulmonary embolus. No fractures within the visualized osseous structures. No pneumothorax. The central airways are patent. No focal lung consolidations to suggest pneumonia. No evidence for pulmonary edema. IMPRESSION: 1. No evidence for pulmonary embolus. 2. Borderline cardiomegaly, unchanged. 3. Hepatic steatosis with hepatosplenomegaly. This is also similar to the prior study. 4. No focal lung consolidations to suggest pneumonia. ACT 112: Negative or not required by law. Electronically signed by: Casey Nails M.D. 11/14/2023 3:29 PM Pending Results Patient Have Any Pending Studies at Discharge: No Discharge Instructions Given to Patient (Per Discharging Provider) PLEASE REFER TO YOUR NEW MEDICATION LIST AND FOLLOW INSTRUCTIONS CAREFULLY. YOUR NEW MEDICATIONS INCLUDE: Tamiflu-antiviral medication for influenza B Doxycycline-antibiotic for possible bacterial coinfection, acute bronchitis Prednisone 40 mg daily x 2 days-steroid for acute bronchitis DuoNeb-nebulizer treatment, use 3 times a day for 3 to 5 days, then wean off accordingly Mucinex-for cough Please continue using your incentive spirometry and flutter valve at home. Please continue to isolate at home for at least 4 more days. Drink plenty of fluids. Ambulate frequently. Take a probiotic daily for at least 2 weeks. PLEASE CALL YOUR PRIMARY CARE PHYSICIAN OR RETURN TO THE ER IF WITH WORSENING OF SYMPTOMS, INCLUDING Worsening cough, shortness of breath, fevers or chills, weakness, chest pain, etc. FOLLOW UP WITH PRIMARY CARE PHYSICIAN OUTLINED ABOVE. Take care. Total Time Total Time Spent Total Time Spent (In Minutes): >30 minutes
== END 2023-11-17 16:08 | disposition home or self-care (01) | DRG 194 ==
LOC: ED 12:38 → EDINP 17:47 → SUATTDRO 17:47 → 3E 21:14